=== PATIENT | male | born 1960 | race Hispanic/Latino ===

== ENCOUNTER 2024-03-09 07:13 | Day surgery (SDC) | payer OTHER ==
[2024-03-03 10:45] VITALS: BMI 25.8
[2024-03-09] MEDS ORDERED: Rocuronium Bromide 10 MG/ML (10ML VIAL) ONE (08:25)
[2024-03-09] MEDS ORDERED: fentaNYL PF 100 MCG/2 ML SYRINGE ONE (08:26)
[2024-03-09] MEDS ORDERED: Midazolam HCl 2 mg/2 ml Vial ONE (08:26)
[2024-03-09] MEDS ORDERED: PROPOFOL 20 ML ONE (08:26)
[2024-03-09] MEDS ORDERED: Iopamidol 30 ML ONE (08:53)
[2024-03-09] MEDS ORDERED: Sodium Chloride 0.9% 100 ML ONE (09:06)
[2024-03-09] MEDS ORDERED: CEFAZOLIN 2 GM VIAL ONE (09:06)
[2024-03-09] MEDS ORDERED: Lidocaine 1% PF 5 ML VIAL ONE (09:29)
[2024-03-09] MEDS ORDERED: Ondansetron PF 4 MG/2 ML Vial ONE (10:15)
[2024-03-09] MEDS ORDERED: Dexamethasone 20 MG/5 ML VIAL ONE (10:15)
[2024-03-09] MEDS ORDERED: PHENYLEPHRINE-NS 100 MCG/ML 10 ML SYRINGE ONE (10:21)
== END 2024-03-09 14:04 | disposition home or self-care (01) ==
LOC: SDC 07:13
PROVIDERS: ATTEND Urology
PROC: 0T778DZ Dilation of Left Ureter with Intraluminal Device, Via Natural or Artificial Opening Endoscopic (ICD-10-PCS; principal; 2024-03-09)
DX: N20.2 Calculus of kidney with calculus of ureter (principal); K21.9 Gastro-esophageal reflux disease without esophagitis; Z98.890 Other specified postprocedural states; Z79.899 Other long term (current) drug therapy
CPT/HCPCS: 74420; C1747; C1769; C2617; J1100; J2250; J2405; J2704; Q9967

== ENCOUNTER 2024-03-24 09:42 | Outpatient (CLI) | payer OTHER ==
[2024-03-24 10:21] LABS: #Basophils 0.07 10x3/uL (0.0-0.2); %Basophils 0.7 % (0.0-1.0); %Eosinophils 5.1 % (0.0-10.0); %Lymphocytes 22.9 % (21.0-51.0); %Monocytes 7.5 % (0.0-10.0); %Neutrophils 63.5 % (42.0-75.0); Hematocrit 31.8 % (42.0-52.0); Hemoglobin 10.2 g/dL (14.0-18.0); Mean Corpuscular HGB CONC 32.1 g/dL (32.0-36.0); Mean Corpuscular Hemoglobin 30.8 pg (27.0-31.0); Mean Corpuscular Volume 96.1 fL (78.0-98.0); Platelet Count 191 10x3/uL (130-400); RBC Distribution Width 13.4 % (11.5-14.5); Red Blood Cell (RBC) Count 3.31 mill/uL (4.70-6.10)
[2024-03-24 10:41] LABS: Anion Gap 13 mmol/L (10-20); BUN (Urea Nitrogen) 57 mg/dL (8.4-25.7); Calc. Creatinine Clearance 0 mL/min (70-130); Calcium 9.3 mg/dL (7.8-10.44); Carbon Dioxide 19 mmol/L (23-31); Chloride 113 mmol/L (98-107); Estimated GFR 11; Glucose 91 mg/dL (80-115); Potassium 5.2 mmol/L (3.5-5.1); Sodium 140 mmol/L (136-145)
== END 2024-03-24 09:43 | disposition home or self-care (01) ==
LOC: LABBT 09:42
PROVIDERS: ATTEND Urology
DX: Z01.812 Encounter for preprocedural laboratory examination (principal); N20.2 Calculus of kidney with calculus of ureter
CPT/HCPCS: 80048; 85025; 87086

== ENCOUNTER 2024-03-30 06:44 | Day surgery (SDC) | payer OTHER ==
[2024-03-24 10:16] VITALS: BMI 24.2
[2024-03-30] MEDS ORDERED: Iopamidol 30 ML ONE (08:22)
[2024-03-30] MEDS ORDERED: PROPOFOL 20 ML ONE (08:25)
[2024-03-30] MEDS ORDERED: fentaNYL PF 100 MCG/2 ML SYRINGE ONE (08:25)
[2024-03-30] MEDS ORDERED: Midazolam HCl 2 mg/2 ml Vial ONE (08:25)
[2024-03-30] MEDS ORDERED: Lidocaine 1% PF 5 ML VIAL ONE (08:26)
[2024-03-30] MEDS ORDERED: CEFAZOLIN 2 GM VIAL ONE (08:33)
[2024-03-30] MEDS ORDERED: Ondansetron PF 4 MG/2 ML Vial ONE (08:58)
[2024-03-30] MEDS ORDERED: Dexamethasone 20 MG/5 ML VIAL ONE (08:58)
[2024-03-30] MEDS ORDERED: Meperidine HCl/PF 25 MG (1 mL) VIAL ONE (10:24)
== END 2024-03-30 14:25 | disposition home or self-care (01) ==
LOC: SDC 06:44
PROVIDERS: ATTEND Urology
PROC: 0TC78ZZ Extirpation of Matter from Left Ureter, Via Natural or Artificial Opening Endoscopic (ICD-10-PCS; principal; 2024-03-30)
PROC: 0T778DZ Dilation of Left Ureter with Intraluminal Device, Via Natural or Artificial Opening Endoscopic (ICD-10-PCS; principal; 2024-03-30)
DX: N13.5 Crossing vessel and stricture of ureter without hydronephrosis (principal); N20.2 Calculus of kidney with calculus of ureter; K21.9 Gastro-esophageal reflux disease without esophagitis; Z98.890 Other specified postprocedural states
CPT/HCPCS: 74420; 82365; 88300; C1747; C1769; C2617; J1100; J2175; J2250; J2405; J2704; Q9967

== ENCOUNTER 2025-06-02 13:03 | Outpatient (CLI) | payer BC | END 2025-06-02 13:04 | disposition home or self-care (01) | LOC: BICRAD 13:03 | PROVIDERS: ATTEND Internal Medicine Nephrology | DX: N18.5 Chronic kidney disease, stage 5 (principal) | CPT/HCPCS: 71046 ==